=== PATIENT | male | born 2000 | race Caucasian/White ===

== ENCOUNTER 2020-01-05 19:52 | Emergency (ER) | payer OTHER ==
[~2020-01-05] VITALS: Ht 177.8 cm; Wt 72.6 kg
[2020-01-05 19:56] VITALS: BP 138/90; Ht 177.8 cm; Wt 72.6 kg
== END 2020-01-05 20:06 | disposition other institution (70) ==
LOC: ED 19:52
DX: Z02.89 Encounter for other administrative examinations (principal)